=== PATIENT | male | born 1990 | race African-American/Black ===

== ENCOUNTER 2019-10-13 12:59 | Emergency (ER) | payer SELFPAY ==
--- NOTE | ~2019-10-13 | XR_ITS ---
XR hand RT min 3V DATE: 10/13/2019 13:30 INDICATION: Punching injury. Metacarpal pain. TECHNIQUE: 3 views COMPARISON: None FINDINGS: There is a comminuted fracture the distal shaft and neck of the fifth metacarpal bone, with approximately 2 cortical widths lateral displacement with approximately 28 degrees apex dorsal angul ation. No other fracture or dislocation. IMPRESSION: Fifth metacarpal fracture Reviewed, dictated and finalized at location A. MA SURGEON IMPRESSION: Fifth metacarpal fracture
[2019-10-13 13:01] VITALS: BP 116/66; PULSE 82; RESP 20; TEMP 36.4; O2SAT 100
--- NOTE | 2019-10-13 13:42 | ED.UPPEXIN ---
HPI - Extremity Injury (Upper) General Chief Complaint: Extremity Injury, Upper Stated Complaint: hand injury Time Seen by Provider: 10/13/19 13:25 Source: patient Mode of arrival: ambulatory Limitations: no limitations History of Present Illness HPI narrative: This is a 29-year-old RHD male that presents the emergency department for right hand injury 1 week ago. Reports he punched a refrigerator. Reports since he has had pain in the fifth finger. Also reports swelling to the area. Denies decreased range of motion or numbness. Related Data Allergies Allergy/AdvReac Type Severity Reaction Status Date / Time No Known Allergies Allergy Verified 10/13/19 13:34 Review of Systems Review of Systems: Narrative: CONSTITUTIONAL: Denies fever MUSCULOSKELETAL: Reports joint pain, and myalgia. NEUROLOGIC: Denies numbness All systems reviewed & are unremarkable except as noted in HPI and below PMFSH Social History Social History (Updated 10/13/19 @ 13:42 by Erica Artis PA-C) Smoking status: Never smoker Substance use: never Exam Narrative: Exam Narrative: GENERAL: Well-appearing, well-nourished, and in no acute distress. HEAD: Normocephalic, atraumatic. EYES: EOMI. EXTREMITIES: Normal range of motion. Mild edema about the right fifth metacarpal, tender to palpation. Normal radial pulses. Normal sensation SKIN: Warm, dry, no rash. NEURO: No focal deficits. Alert and oriented x3. PSYCH: Normal mood and affect Course Consultations Consultation #1: Spoke with Dr. Prince about patient work-up will follow-up in clinic Date: 10/13/19 Time: 14:41 Vital Signs Vital signs: Vital Signs Temperature 97.5 F L 10/13/19 13:01 Pulse Rate 82 10/13/19 13:01 Respiratory Rate 20 10/13/19 13:01 Blood Pressure 116/66 10/13/19 13:01 Pulse Oximetry 100 10/13/19 13:01 Temperature 97.5 F L 10/13/19 13:01 Pulse Rate 82 10/13/19 13:01 Respiratory Rate 20 10/13/19 13:01 Blood Pressure 116/66 10/13/19 13:01 Pulse Oximetry 100 10/13/19 13:01 Procedures Orthopedic Splinting/Casting Injury #1: Splinting/Casting Date: 10/13/19 Splinting/Casting Time: 14:40 Side: right Upper Extremity Injury Location: hand Splint: customized in ED OCL: ulnar gutter Pre-Procedure Neuro Vascular Exam: normal Post-Procedure Neuro Vascular Exam: normal MDM - Extremity Injury (Upper) MDM Narrative Medical decision making narrative: Patient presents the emergency department for right hand pain after an injury 1 week ago. Right hand x-ray shows a 5th metacarpal fracture. Patient was placed in an ulnar gutter. Spoke with Dr. Prince about patient work-up will follow-up in clinic. Patient was given warnings to return to the ER Imaging Data Radiologist's impression: ITS Impressions Hand X-Ray 10/13/19 13:48 IMPRESSION: Fifth metacarpal fracture Critical Care Time Critical Care Time Critical Care Time: No Discharge Plan Discharge Clinical Impression: Closed displaced fracture of neck of right fifth metacarpal bone Qualifiers: Encounter type: initial encounter Qualified Code(s): S62.336A - Displaced fracture of neck of fifth metacarpal bone, right hand, initial encounter for closed fracture Patient Disposition: Home, Self-Care Condition: Stable Instructions: Hand Fracture (ED) Additional Instructions: Return to the emergency department if you experience fever, redness and swelling of your arm, or any other symptoms that are concerning to you Rest. Elevate. Ice to the area. Pain medication as needed Follow-up with Dr. Prince. Call tomorrow morning to make an appointment Prescriptions: New hydrocodone-acetaminophen 5-325 mg tablet 1 tablet PO Q8H PRN (Reason: pain) Qty: 20 RF: 0 Follow-up/Referrals: Eliu Prince MD [Physician] - 1 Day PHYSICIAN,ROLL SETTER [Primary Care Provider] - Stand Alone Forms: Wor
[2019-10-13 14:43] VITALS: TEMP 36.4
== END 2019-10-13 14:53 | disposition home or self-care (01) ==
PROVIDERS: Emergency Provider Emergency Medicine
DX: S62.336A Displaced fracture of neck of fifth metacarpal bone, right hand, initial encounter for closed fracture (principal); S62.326A Displaced fracture of shaft of fifth metacarpal bone, right hand, initial encounter for closed fracture; W22.8XXA Striking against or struck by other objects, initial encounter
CPT/HCPCS: 29125; 73130; 99284; A4565; A9270

== ENCOUNTER 2019-11-27 09:10 | Outpatient (CLI) | payer SELFPAY ==
--- NOTE | ~2019-11-27 | XR_ITS ---
EXAMINATION: XR hand RT min 3V INDICATION: Displaced fracture of the neck of the fifth metacarpal, follow-up TECHNIQUE: Three views of the right hand are obtained. COMPARISON: 10/13/2019 FINDINGS: Again seen is a comminuted neck fracture of the fifth metacarpal. Calcified callus has incr eased at the fracture site. There are 3 mm of persistent lateral displacement of the distal fracture fragment relative to the proximal fragment. There are approximately 50 degrees of persistent palmar a ngulation at the fracture site. The remaining osseous structures are unremarkable. The joint spaces a re normal. IMPRESSION: 1. Fifth metacarpal neck fracture with persistent angulation displacement of the distal fracture frag ment and some evidence of routine healing. Reviewed, dictated and finalized at location B. IMPRESSION: 1. Fifth metacarpal neck fracture with persistent angulation displacement of th e distal fracture fragment and some evidence of routine healing.
== END 2019-11-27 09:11 ==
PROVIDERS: PCP Surgery Plastic and Reconstructive Surgery; Visit Provider Surgery Plastic and Reconstructive Surgery
DX: S62.336D Displaced fracture of neck of fifth metacarpal bone, right hand, subsequent encounter for fracture with routine healing (principal); X58.XXXD Exposure to other specified factors, subsequent encounter
CPT/HCPCS: 73130